=== PATIENT | male | born 2000 | race Caucasian/White ===

== ENCOUNTER 2019-01-27 06:44 | Emergency (ER) | payer BC, OTHER ==
[~2019-01-27] VITALS: Ht 175.3 cm; Wt 53.7 kg
[2019-01-27 06:46] VITALS: Ht 175.3 cm; Wt 53.7 kg
--- NOTE | 2019-01-27 07:18 | ERD ---
ER Documentation Chief Complaint Chief Complaint Constant AP since January 17, Unintentional weight loss D/T inability to eat. HPI There is a 18-year-old male who presents for evaluation of abdominal pain that been ongoing since January 17. Patient has had 2 ER visits now over the last week, and states he has had 2 CAT scans. Symptoms have been attributed to marijuana use, as well as the patient stating that he drinks a lot of caffeine including red bowls. She was prescribed anxiety medication, as well as Protonix. He has not a fever, pain is localized to the epigastric area. He has no chest pain or shortness of breath. He has not had testicular pain ROS All systems reviewed and are negative except as per history of present illness. Allergies Allergies: Coded Allergies: dextromethorphan (Verified Allergy, Intermediate, SWELLING, 01/27/19) diphenhydramine (Verified Allergy, Intermediate, SWELLING, 01/27/19) guaifenesin (Verified Allergy, Intermediate, SWELLING, 01/27/19) phenylephrine (Verified Allergy, Intermediate, SWELLING, 01/27/19) pseudoephedrine (Verified Allergy, Intermediate, SWELLING, 01/27/19) Physical Exam Vitals Vital Signs Date Temp Pulse Resp B/P (MAP) Pulse Ox O2 O2 Flow FiO2 Time Delivery Rate 01/27/19 97.8 100 16 135/103 98 06:46 (114) Physical Exam Const: Well-developed, well-nourished, nontoxic Head: Atraumatic Eyes: Normal Conjunctiva ENT: Normal External Ears, Nose and Mouth. Neck: Full range of motion. No meningismus. Resp: Clear to auscultation bilaterally Cardio: Regular rate and rhythm, no murmurs Abd: Soft, tenderness to the epigastric area, negative Silva sign, no McBurney's point tenderness no rebound or guarding, non distended. Normal bowel sounds Skin: No petechiae or rashes Back: No midline or flank tenderness Ext: No cyanosis, or edema Neur: Awake and alert Psych: Normal Mood and Affect Result Diagram: 01/27/19 0720 01/27/19 0720 Results 24 hrs Laboratory Tests Test 01/27/19 07:20 White Blood Count 10.9 10^3/ul Red Blood Count 5.31 10^6/ul Hemoglobin 16.6 g/dl Hematocrit 45.7 % Mean Corpuscular Volume 86.1 fl Mean Corpuscular Hemoglobin 31.3 pg Mean Corpuscular Hemoglobin Concent 36.3 g/dl Red Cell Distribution Width 12.0 % Platelet Count 220 10^3/UL Mean Platelet Volume 11.1 fl Immature Granulocytes % 0.400 % Neutrophils % 80.0 % Lymphocytes % 13.3 % Monocytes % 5.8 % Eosinophils % 0.1 % Basophils % 0.4 % Nucleated Red Blood Cells % 0.0 /100WBC Immature Granulocytes # 0.040 10^3/ul Neutrophils # 8.8 10^3/ul Lymphocytes # 1.5 10^3/ul Monocytes # 0.6 10^3/ul Eosinophils # 0.0 10^3/ul Basophils # 0.0 10^3/ul Nucleated Red Blood Cells # 0.0 10^3/ul Sodium Level 140 mmol/L Potassium Level 3.1 mmol/L Chloride Level 100 mmol/L Carbon Dioxide Level 24 mmol/L Anion Gap 16 Blood Urea Nitrogen 17 mg/dl Creatinine 0.71 mg/dl Est Glomerular Filtrat Rate mL/min > 60 mL/min Glucose Level 116 mg/dl Calcium Level 10.5 mg/dl Total Bilirubin 1.8 mg/dl Direct Bilirubin 0.00 mg/dl Indirect Bilirubin 1.8 mg/dl Aspartate Amino Transf (AST/SGOT) 32 IU/L Alanine Aminotransferase (ALT/SGPT) 38 IU/L Alkaline Phosphatase 61 IU/L Total Protein 8.1 g/dl Albumin 5.3 g/dl Globulin 2.80 g/dl Albumin/Globulin Ratio 1.89 Lipase 280 U/L Current Medications Medications Dose Sig/Kj Start Time Status Last (Trade) Ordered Route PRN Stop Time Admin Dose Reason Admin 10 mg ONCE ONCE 01/27/19 DC 01/27/19 Metoclopramid IV 07:30 01/27/19 07:24 e HCl 07:31 (Reglan) 40 ml ONCE ONCE 01/27/19 DC 01/27/19 Miscellaneous PO 07:30 01/27/19 07:24 Medication 07:31 (Gi Cocktail (2)) Famotidine 20 mg ONCE ONCE 01/27/19 DC 01/27/19 (Pepcid) PO 07:30 01/27/19 07:25 07:31 Sodium 1,000 ml @ Q1H ONCE 01/27/19 01/27/19 Chloride 1,000 mls/hr IV 07:30 01/27/19 07:25 08:29 Procedures/MDM 18-year-old male presents for evaluation of abdominal pain, that is epigastric, exam reveals a well-appearing well-nourished nontoxic male. He has no peritoneal signs on abdominal exam, at this point I have very low suspicion for a surgical abdomen, labs ordered to check for I abnormalities, plan for symptom control. 8:24 AM: Patient's symptoms have improved significantly. At this point I feel he is stable for discharge home, serial abdominal exams have revealed no peritoneal signs, given prescription for Pepcid and Zofran, he had a mild leukocytosis which actually has noted down trended from his labs 2 days ago. Otherwise, potassium was 3.1, instructed on dietary changes, patient states she will follow-up with his primary care doctor at discharge she was in no distress. Departure Diagnosis: Primary Impression: Abdominal pain Abdominal location: generalized Qualified Codes: R10.84 - Generalized abdominal pain Condition: Stable ISAIAS COLLIER MD Jan 27, 2019 07:18
[2019-01-27] MEDS ORDERED: METOCLOPRAMIDE 10 MG INJ IV ONE (07:30)
[2019-01-27] MEDS ORDERED: LIDOCAINE/MYLANTA 40 ML BTL PO ONE (07:30)
[2019-01-27] MEDS ORDERED: SOD CHLORIDE 0.9% 1,000 ML IV ONE (07:30)
[2019-01-27] MEDS ORDERED: FAMOTIDINE 20 MG TAB PO ONE (07:30)
[2019-01-27] MEDS ORDERED: FAMO-96 PO (08:26)
[2019-01-27] MEDS ORDERED: ONDA8TAB14 PO (08:26)
[2019-01-27 08:32] VITALS: BP 128/76; PULSE 94; RESP 16
== END 2019-01-27 08:33 | disposition home or self-care (01) ==
LOC: E/R 06:44
DX: R10.13 Epigastric pain (principal)
CPT/HCPCS: 80053; 83690; 85025; 96374; 99284; J2765; J7030; Z7610